=== PATIENT | male | born 1990 | race Asian ===

== ENCOUNTER 2016-11-30 02:02 | Emergency (ER) | payer SELFPAY ==
[~2016-11-30] VITALS: Ht 165.1 cm; Wt 79.5 kg
[~2016-11-30 02:02] MED LIST: NOCURR
[2016-11-30] MEDS ORDERED: IBUPROFEN 600 MG TABLET PO ONE (04:00)
[2016-11-30] MEDS ORDERED: PERTUSS(ACELL),DIPH,TET VAC/PF 0.5 ML VIAL IM ONE (04:00)
[2016-11-30 04:58] VITALS: BP 129/82
== END 2016-11-30 05:06 | disposition home or self-care (01) ==
LOC: EMS 02:04
DX: S39.012A Strain of muscle, fascia and tendon of lower back, initial encounter (principal); S50.02XA Contusion of left elbow, initial encounter; Z02.89 Encounter for other administrative examinations; V49.9XXA Car occupant (driver) (passenger) injured in unspecified traffic accident, initial encounter; Y93.89 Activity, other specified; Y92.89 Other specified places as the place of occurrence of the external cause; Y99.8 Other external cause status
CPT/HCPCS: 72100; 90471; 90715; 99284

== ENCOUNTER 2024-08-10 18:21 | Emergency (ER) | payer OTHER ==
[~2024-08-10] VITALS: Ht 170.2 cm; Wt 62.0 kg
[2024-08-10 18:29] VITALS: TEMP 99.1
[2024-08-10 22:23] LABS: BASOPHILS % (AUTO) 0.4 % (0.0-2.0); HEMATOCRIT 43.8 % (41-53); HEMOGLOBIN 14.7 g/dL (13.5-17.5); LYMPHOCYTES # (AUTO) 3.4 K/uL (1.0-4.8); LYMPHOCYTES % (AUTO) 37.6 % (22.0-44.0); MEAN CORPUSCULAR HEMOGLOBIN 30.2 pg (26.0-34.0); MEAN CORPUSCULAR HGB CONC 33.5 G/dL (31.0-37.0); MEAN CORPUSCULAR VOLUME 90 fL (80-100); MONOCYTES # (AUTO) 0.4 K/uL (0.1-1.0); MONOCYTES % (AUTO) 4.7 % (2.0-9.0); NEUTROPHILS # (AUTO) 5.1 K/uL (1.8-7.7); NEUTROPHILS % (AUTO) 56.3 % (40.0-70.0); PLATELET COUNT (AUTO) 383 K/uL (150-450); RED BLOOD CELL COUNT(AUTO) 4.86 MIL/uL (4.50-5.90); RED CELL DISTRIBUTION WIDTH 12.1 % (11.5-14.5); WHITE BLOOD COUNT (AUTO) 9.1 K/uL (4.5-11.0)
[2024-08-10 22:28] LABS: ANION GAP 11 mmol/L (8-16); CALCIUM, TOTAL 8.7 mg/dL (8.8-10.5); CARBON DIOXIDE 28 mmol/L (22-29); CHLORIDE 103 mmol/L (98-107); GLOMERULAR FILTR. RATE CALC > 60 mL/min (>60); GLUCOSE,RANDOM 93 mg/dL (70-110); POTASSIUM 3.7 mmol/L (3.5-5.1); SODIUM SERUM 142 mmol/L (136-145); UREA NITROGEN, BLOOD 10 mg/dL (7-18)
[2024-08-10 22:57] VITALS: BP 124/88; PULSE 77; RESP 17; O2SAT 98
[2024-08-10 23:04] LABS: LIPASE 43 U/L (16-77)
[2024-08-10] MEDS: KETOROLAC TROMETHAMINE 30 MG/ML VIAL IM ONE (23:10)
[2024-08-10] MEDS ORDERED: POLY119P3 PO (23:36)
== END 2024-08-11 00:07 | disposition home or self-care (01) ==
LOC: EMS 18:37
DX: K59.00 Constipation, unspecified (principal); R07.89 Other chest pain
CPT/HCPCS: 99284; 71045; 80048; 83690; 85025; 36415; 96372; J1885